=== PATIENT | female | born 1965 | race Two or more races ===

== ENCOUNTER 2018-01-25 17:13 | Emergency (ER) | payer OTHER ==
[~2018-01-25] VITALS: Ht 170.2 cm; Wt 68.0 kg
[~2018-01-25 17:13] MED LIST: SYNTHROID75 MCG
== END 2018-01-25 21:00 | disposition home or self-care (01) ==
LOC: ER 17:13
DX: R07.89 Other chest pain (principal); R53.1 Weakness